=== PATIENT | male | born 1940 | race Caucasian/White ===

== ENCOUNTER 2018-02-03 06:19 | Day surgery (SDC) | payer MEDICARE ==
[2018-01-31 13:07] VITALS: BMI 31.8
[2018-02-03] MEDS ORDERED: SUCCINYLCHOLINE CHLORIDE 200 MG/10 ML VIAL ONE (07:18)
[2018-02-03] MEDS ORDERED: MIDAZOLAM HCL 2 MG/2 ML SINGLE DOSE VIAL ONE (07:19)
[2018-02-03] MEDS ORDERED: LACTATED RINGERS SOLUTION 1,000 ML IV SCH (11:15)
[2018-02-03] MEDS ORDERED: oxyCODONE HCL 5 MG TABLET PO PRN ×2 (11:15)
[2018-02-03] MEDS ORDERED: ONDANSETRON 4 MG/2 ML VIAL IVPUSH PRN (11:15)
--- NOTE | 2018-02-03 11:47 | OP ---
Operative Note - Note: Operative Date: 02/03/18 Pre-Operative Diagnosis: bph/urinary retention Operation: transurethral resection and vaporization of the prostate with bipolar system Findings: 3+ obstructive prostate with 2+ bladder trabeculation with cellules Post-Operative Diagnosis: Same as Pre-op Surgeon: Aleksander Restrepo Anesthesia: Spinal Specimens Removed: prostatic chips Estimated Blood Loss (mls): 30 Drains & Tubes with Location: [address] Operative Report Dictated: Yes
[2018-02-03 19:17] VITALS: BP 140/85; TEMP 98
[2018-02-03 19:31] VITALS: PULSE 76
--- NOTE | 2018-02-03 20:42 | OP ---
DATE OF OPERATION: 02/03/2018 PREOPERATIVE DIAGNOSIS: Benign prostatic hypertrophy and urinary retention. POSTOPERATIVE DIAGNOSIS: Benign prostatic hypertrophy and urinary retention. PROCEDURE: Transurethral resection and vaporization of the prostate with bipolar system. ATTENDING PHYSICIAN: Gissel Restrepo MD ANESTHESIA: Spinal. DESCRIPTION OF OPERATION: The patient was brought in the operating room, placed in supine position on the operating room table. Anesthesia and preoperative antibiotics were administered without complications. Patient was then placed in the dorsal lithotomy position and prepped and draped in the usual sterile manner. A resectoscope was placed under visualization into the bladder. The bladder was investigated and noted to have no evidence of stones or neoplasm. A 3+ obstructive prostate was noted. Resection of the prostate in order to debulk the prostate was performed initially. The margins of the resection were the bladder neck proximally and the verumontanum distally. The resection was performed in a 360-degree fashion. The resection was taken down to the level of the pseudocapsule of the prostate. Once this was performed, all prostatic chips were evacuated from the bladder utilizing the [employer] evacuator. At this point, the working element, which had been the loop, was changed to a button. Vaporization and cauterization was then ensured utilizing the button element of the bipolar system. Residual tissue was vaporized, and excellent hemostasis was attained within the prostatic fossa. The margins of the vaporization and cauterization were the bladder neck proximally and the verumontanum distally. This was done again in a 360-degree fashion. Excellent hemostasis was attained. The bladder was investigated and noted to have no evidence of residual prostatic tissue. There was no evidence of perforation of the bladder. The abdomen was soft on examination during the procedure. With excellent hemostasis, the resectoscope was removed, and a Mosquera catheter placed, 30 mL were inflated into the balloon of the catheter and placed on light traction. Excellent drainage was noted which was light pink in color. The disposition of the patient was to the recovery room. The catheter had been placed to straight drainage. The patient will be observed in the recovery room and the postop area. If the patient continues to do well, he will be discharged home. GISSEL SO M.D. [id number]
--- NOTE | 2018-02-04 18:54 | PATH ---
Surgical Pathology Report Patient Name: JUAQUIN SCHMITZ [facility]. Rec. #: [id number] /Age/Gender: 1940 (Age: 77) / M Account: [id number] Location: [facility] SURGICAL Taken: 02/03/2018 Received: 02/03/2018 Reported: 02/04/2018 Physicians: Aleksander Restrepo Specimen(s) Received PROSTATE CHIPS Clinical History BPH Final Diagnosis PROSTATE, TRANSURETHRAL RESECTION OF PROSTATE: BENIGN PROSTATIC TISSUE WITH ACINAR ATROPHY, CYSTIC CHANGES, GLANDULAR AND STROMAL HYPERPLASIA. UROTHELIAL MUCOSA WITH ACUTE AND CHRONIC INFLAMMATION AND CYSTITIS CYSTICA. Electronically Signed Sherley Davies M.D. Gross Description Received in formalin labeled "prostate chips," is a 10 g, 7.5 x 6.0 x 0.4 cm aggregate of multiple suazo, firm to rubbery portions of tissue, consistent with prostate chips. The specimen is entirely submitted in 10 cassettes. /02/03/2018 [place]udi02/03/2018
== END 2018-02-03 15:00 | disposition home or self-care (01) ==
LOC: JASU-SURG 06:19
PROVIDERS: ATTEND Urology
PROC: 0VT08ZZ Resection of Prostate, Via Natural or Artificial Opening Endoscopic (ICD-10-PCS; principal; 2018-02-03 08:00)
DX: N40.1 Benign prostatic hyperplasia with lower urinary tract symptoms (principal); R33.8 Other retention of urine; E11.9 Type 2 diabetes mellitus without complications; I10 Essential (primary) hypertension; J45.909 Unspecified asthma, uncomplicated
CPT/HCPCS: 82962; 88305-TC; 94760

== ENCOUNTER 2018-02-19 20:50 | Emergency (ER) | payer MEDICARE ==
--- NOTE | 2018-02-19 21:03 | PDOC ---
Rapid Medical Evaluation Chief Complaint: Shortness of Breath Time Seen by Provider: 02/19/18 21:02 Medical Evaluation: Allergies Allergy/AdvReac Type Severity Reaction Status Date / Time No Known Allergies Allergy Verified 02/03/18 07:04 02/19/18 21:02 I have performed a brief in-person evaluation of this patient. The patient presents with CC of: SOB PE: Skin: clear Heart: RRR Lungs: Clear Abd: non tender MS: Moves all extremities without difficulty Neuro: Alert Psych: Appropriate affect I have ordered the following: Cv Protocol The patient will proceed to main ED for further evaluation. Discharge Disposition - Diagnosis Dyspnea Qualifiers: Dyspnea type: shortness of breath Qualified Code(s): R06.02 - Shortness of breath; R06.00 - Dyspnea, unspecified; R06.01 - Orthopnea - Referrals Referrals: José Vo MD [Primary Care Provider] - - Patient Instructions - Post Discharge Activity
[2018-02-19 21:05] VITALS: BP 158/75; PULSE 64; TEMP 98.1; BMI 30.2
[2018-02-19 22:05] LABS: BASO % 1.4 % (0-2.0); EOS % 5.4 % (0-4.5); HEMATOCRIT 37.8 % (35.4-49); HEMOGLOBIN 13.2 GM/dL (11.7-16.9); LYMPH % 28.3 % (8-40); MCH 32.7 pg (25.7-33.7); MEAN CELL VOLUME 93.4 fl (80-96); MEAN PLT VOLUME 8.9 fl (7.5-11.1); MONO % 9.3 % (3.8-10.2); NEUT % 55.6 % (42.8-82.8); PLATELET COUNT 317 K/MM3 (134-434); RBC 4.05 M/mm3 (4.00-5.60); RDW 14.1 % (11.9-15.9); WHITE BLOOD COUNT 6.7 K/mm3 (4.0-10.0)
[2018-02-19 22:19] LABS: INR 1.02 (0.83-1.09)
[2018-02-19] MEDS ORDERED: ALBUTEROL SO4 2.5/IPRATROPIUM 0.5 INH SOL 3 ML VIAL.NEB. NEB ONE ×2 (22:20→22:33)
--- NOTE | 2018-02-19 22:32 | PDOC ---
History of Present Illness - General Chief Complaint: Shortness of Breath Stated Complaint: DIFF. BREATHING Time Seen by Provider: 02/19/18 21:02 History Source: Patient, Family Exam Limitations: No Limitations - History of Present Illness Initial Comments: 02/19/18 22:31 The patient is a 77M with a PMH of COPD and DM who presents to the ER with complaints of shortness of breath. The patient states that he developed shortness of breath earlier today around 1400. He denies any CP, nausea, vomiting, fever, chills, or cough with this shortness of breath. He denies any leg swelling, hx of DVT/PE, recent travel, but admits to having a TURP procedure 2 weeks ago. Past History - Past Medical History Allergies/Adverse Reactions: Allergies Allergy/AdvReac Type Severity Reaction Status Date / Time No Known Allergies Allergy Verified 02/19/18 21:05 Home Medications: Ambulatory Orders Budesonide/Formeterol Fumarate [SYMBICORT 160/4.5mcg -] 1 inh PO PRN 01/31/18 Glimepiride [Amaryl -] 2 mg PO DAILY 01/31/18 Lisinopril [Zestril] 2.5 mg PO DAILY 01/31/18 Metoprolol Succinate [Toprol Xl] 50 mg PO DAILY 01/31/18 Oxybutynin Chloride [Ditropan Xl] 10 mg PO DAILY 01/31/18 Tamsulosin HCl [Flomax] 0.4 mg PO DAILY 01/31/18 Bicalutamide [Casodex -] 50 mg PO DAILY 02/19/18 Albuterol Sulfate Inhaler - [Ventolin HFA Inhaler -] 1 - 2 inh PO Q4H PRN #1 inhaler 02/20/18 Azithromycin 250 mg PO ONCE #5 tablet 02/20/18 Anemia: No Asthma: No Cancer: Yes (PROSTATE) Cardiac Disorders: No CVA: No COPD: Yes CHF: No Dementia: No Diabetes: Yes GI Disorders: No Disorders: No HTN: Yes Hypercholesterolemia: No Liver Disease: No Seizures: No Thyroid Disease: No - Surgical History Abdominal Surgery: Yes (HERNIA) Appendectomy: No Cardiac Surgery: No Cholecystectomy: No Lung Surgery: No Neurologic Surgery: No Orthopedic Surgery: No - Suicide/Smoking/Psychosocial Hx Smoking Status: No Smoking History: Never smoked Have you smoked in the past 12 months: No Number of Cigarettes Smoked Daily: 0 If you are a former smoker, when did you quit?: 36 YEARS AGO Information on smoking cessation initiated: No Hx Alcohol Use: No Drug/Substance Use Hx: No Substance Use Type: None Hx Substance Use Treatment: No Review of Systems - Review of Systems Able to Perform ROS?: Yes Comments:: 02/20/18 01:29 GENERAL/CONSTITUTIONAL: No fever or chills. No weakness. HEAD, EYES, EARS, NOSE AND THROAT: No change in vision. No ear pain or discharge. No sore throat. CARDIOVASCULAR: No chest pain, palpitations, or lightheadedness. RESPIRATORY: Positive for shortness of breath. No cough, wheezing, or hemoptysis. GASTROINTESTINAL: No nausea, vomiting, diarrhea, constipation, or abdominal pain. GENITOURINARY: No dysuria, frequency, hematuria, or change in urination. MUSCULOSKELETAL: No joint or muscle swelling or pain. No neck or back pain. SKIN: No rash or lesions. NEUROLOGIC: No headache, numbness, tingling, focal weakness, loss of consciousness, or change in strength/sensation. ENDOCRINE: No increased thirst. No abnormal weight change. HEMATOLOGIC/LYMPHATIC: No anemia, easy bleeding, or history of blood clots. ALLERGIC/IMMUNOLOGIC: No hives or skin allergy. Is the patient limited Persian proficient: No *Physical Exam - Vital Signs Last Vital Signs Temp Pulse Resp BP Pulse Ox 98.1 F 64 16 158/75 96 02/19/18 21:02 02/19/18 21:02 02/19/18 21:02 02/19/18 21:02 02/19/18 21:54 - Physical Exam Comments: 02/20/18 01:29 GENERAL: Well developed, well nourished. Awake and alert. No acute distress. HEENT: Normocephalic, atraumatic. Hearing grossly normal. Moist mucous membranes. PERRLA, EOMI. No conjunctival pallor. Sclera are non-icteric. NECK: Supple. Full ROM. No JVD. CARDIOVASCULAR: Regular rate and rhythm. No murmurs, rubs, or gallops. PULMONARY: No evidence of respiratory distress. Lungs show diffuse rhonchi. ABDOMINAL: Soft. Non-tender. Non-distended. No rebound or guarding. GENITOURINARY: No CVA tenderness bilaterally. MUSCULOSKELETAL: Normal range of motion at all joints. No bony deformities or tenderness. EXTREMITIES: No cyanosis. No clubbing. No edema. No calf tenderness or swelling. SKIN: Warm and dry. Normal capillary refill. No rashes. No jaundice. NEUROLOGICAL: Alert, awake, appropriate. Cranial nerves 2-12 grossly intact. Normal speech. Gait is normal without ataxia. PSYCHIATRIC: Cooperative. Good eye contact. Appropriate mood and affect. Moderate Sedation - Procedure Monitoring Vital Signs: Procedure Monitoring Vital Signs Temperature 98.1 F 02/19/18 21:02 Pulse Rate 64 02/19/18 21:02 Respiratory Rate 16 02/19/18 21:02 Blood Pressure 158/75 02/19/18 21:02 O2 Sat by Pulse Oximetry (%) 96 02/19/18 21:54 Heart Score/ECG Review - History History: Slightly suspicious - Electrocardiogram EKG: Normal - Age Age: >/= 65 - Risk Factors Risk Factors Heart Score: Yes Hx Diabetes Based on the list above the patient has:: 1-2 risk factors - Troponin Troponin: </= normal limit - Score Heart Score - Total: 3 #1 ECG reviewed & interpreted by me at: 21:45 General ECG Interpretation: Sinus Rhythm, Normal Rate, Normal Intervals, No acute ischemic changes Compared to previous ECG there are: No significant change 02/20/18 01:39 NSR vent rate 60 AK 138 QRS 72 QTc 439 No STD or SEAN No signs of acute ischemia ED Treatment Course - LABORATORY CBC & Chemistry Diagram: 02/19/18 21:20 02/19/18 22:10 - ADDITIONAL ORDERS Additional order review: Laboratory Results 02/19/18 02/19/18 21:20 21:19 PT with INR 12.00 INR 1.02 Sodium Cancelled Potassium Cancelled Chloride Cancelled Carbon Dioxide Cancelled Anion Gap Cancelled BUN Cancelled Creatinine Cancelled Creat Clearance w eGFR Cancelled Random Glucose Cancelled Calcium Cancelled Magnesium Cancelled Total Bilirubin Cancelled AST Cancelled ALT Cancelled Alkaline Phosphatase Cancelled Creatine Kinase Cancelled Troponin I Cancelled Total Protein Cancelled Albumin Cancelled 02/19/18 21:20 RBC 4.05 MCV 93.4 MCHC 35.0 RDW 14.1 MPV 8.9 Neutrophils % 55.6 D Lymphocytes % 28.3 D Monocytes % 9.3 D Eosinophils % 5.4 H D Basophils % 1.4 D - RADIOLOGY Radiology Studies Ordered: Category Date Time Status CHEST X-RAY PORTABLE* [RAD] Stat Radiology 02/19/18 22:28 Ordered Medical Decision Making - Medical Decision Making 02/20/18 01:04 The patient is a 77M with a PMH of COPD and DM who presents to the ER with complaints of SOB. Exam shows diffuse rhonchi. Will treat for COPD exacerbation. CXR shows possible R lower lobe infiltrate. Giving first dose of abx in ER. DDx includes CHF and atypical ACS. Trop and BNP negative. 2 nebs given with improvement in aeration. Will d/c with PCP f/u and abx and inhaler. *DC/Admit/Observation/Transfer Diagnosis at time of Disposition: Dyspnea Qualifiers: Dyspnea type: shortness of breath Qualified Code(s): R06.02 - Shortness of breath - Discharge Dispostion Disposition: HOME Condition at time of disposition: Stable Decision to Admit order: No - Prescriptions Prescriptions: Albuterol Sulfate Inhaler - [Ventolin HFA Inhaler -] 1 - 2 inh PO Q4H PRN #1 inhaler PRN Reason: Short Of Breath/Wheezing Azithromycin 250 mg PO ONCE #5 tablet - Referrals Referrals: José Vo MD [Primary Care Provider] - - Patient Instructions Printed Discharge Instructions: DI for Chronic Obstructive Pulmonary Disease Additional Instructions: Please follow up with your primary care physician in 1-2 days. Please return to the ER if you have any signs or symptoms of chest pain, shortness of breath, uncontrollable fever, chills, nausea, vomiting, numbness, tingling, or weakness in any part of your body, changes in vision, or slurred speech. Please take your medications as prescribed. Please return to the ER if symptoms persist, worsen, or new symptoms arise. - Post Discharge Activity
--- NOTE | 2018-02-19 22:32 | PDOC ---
Attending Attestation - Resident Resident Name: Everette Mcginnis - ED Attending Attestation I have performed the following: I have examined & evaluated the patient, The case was reviewed & discussed with the resident, I agree w/resident's findings & plan, Exceptions are as noted - HPI HPI: 02/19/18 23:04 77M pmh of COPD, DM here with acute worsening of chronic SOB. Pt has had a worsening of his baseline SOB over the past several months. Over the last several days it has gotten progressively worse. Aggravated by lying flat. No n/ v, f/c, denies increase in or purulence of sputum - Physicial Exam PE: 02/19/18 23:06 Pt was being treated with nebs on my initial exam. Pt reports subjective improvement in symptoms. NAD, AOx3, normal WOB Diffuse rhonchi - Medical Decision Making 02/19/18 23:07 Likely COPD exacerbation, exam/hx inconsistent with viral syndrome, failure, acs , pe, consider pna Symptomatic tx, nebs, steroids f/u cxr dispo per clinical course 02/20/18 01:44 Symptomatic improvement Stable for dc home with trial out pt tx
[2018-02-19] MEDS ORDERED: methylPREDNISolone NA SUCC 125 MG/2 ML VIAL IVPUSH ONE (22:46)
[2018-02-19] MEDS ORDERED: AZITHROMYCIN IVPB 500 MG in DEXTROSE 5%-WATER - 250 ML IVPB ONE (22:46)
[2018-02-19] MEDS ORDERED: methylPREDNISolone NA SUCC 125 MG/2 ML VIAL ONE (22:53)
[2018-02-19] MEDS ORDERED: AZITHROMYCIN IVPB 500 MG/250 ML BAG IVPB ONE (22:53)
[2018-02-19 22:55] LABS: ALBUMIN 3.3 g/dl (3.4-5.0); ALK PHOS 110 U/L (45-117); ANION GAP 8 MMOL/L (8-16); BILIRUBIN,TOTAL 0.4 mg/dL (0.2-1); BLOOD UREA NITROGEN 24 mg/dL (7-18); CALCIUM 7.9 mg/dL (8.5-10.1); CHLORIDE 106 mmol/L (98-107); CO2 27 mmol/L (21-32); CREATININE 1.6 mg/dL (0.55-1.3); GLUCOSE,RANDOM 109 mg/dL (74-106); N-TERMINAL BNP 85.5 pg/ml (5-450); POTASSIUM 4.1 mmol/L (3.5-5.1); SGOT/AST 21 U/L (15-37); SGPT/ALT 23 U/L (13-61); SODIUM 140 mmol/L (136-145); TOT PROT 7.4 g/dl (6.4-8.2)
--- NOTE | 2018-02-20 10:28 | EKG ---
Test Reason : Blood Pressure : / mmHG Vent. Rate : 058 BPM Atrial Rate : 058 BPM P-R Int : 138 ms QRS Dur : 072 ms QT Int : 448 ms P-R-T Axes : 046 010 036 degrees QTc Int : 439 ms POOR DATA QUALITY, INTERPRETATION MAY BE ADVERSELY AFFECTED SINUS BRADYCARDIA LOW VOLTAGE QRS CANNOT RULE OUT ANTERIOR INFARCT , AGE UNDETERMINED ABNORMAL ECG NO PREVIOUS ECGS AVAILABLE Confirmed by ARANZA KHOURY, JAKE ([id number]) on 02/20/2018 10:28:29 AM Referred By: Confirmed By:JAKE COBIAN MD
== END 2018-02-20 01:18 | disposition home or self-care (01) ==
LOC: JER 20:50
PROC: 3E0F7GC Introduction of Other Therapeutic Substance into Respiratory Tract, Via Natural or Artificial Opening (ICD-10-PCS; principal; 2018-02-19)
PROC: 3E03329 Introduction of Other Anti-infective into Peripheral Vein, Percutaneous Approach (ICD-10-PCS; 2018-02-19)
PROC: 3E033GC Introduction of Other Therapeutic Substance into Peripheral Vein, Percutaneous Approach (ICD-10-PCS; 2018-02-19)
DX: R06.02 Shortness of breath (principal); J44.9 Chronic obstructive pulmonary disease, unspecified; Z85.46 Personal history of malignant neoplasm of prostate; E11.9 Type 2 diabetes mellitus without complications; I10 Essential (primary) hypertension
CPT/HCPCS: 36415; 71046-TC-FY; 80053; 82550; 83735; 83880; 84484; 85025; 85610; 93005; 93010; 99285-25

== ENCOUNTER 2018-02-25 02:31 | Emergency (ER) | payer MEDICARE ==
[2018-02-25 03:06] VITALS: BP 159/77; PULSE 74; TEMP 97.7; BMI 27.6
--- NOTE | 2018-02-25 03:07 | PDOC ---
History of Present Illness - General Stated Complaint: DIFFICULTY BREATHING Time Seen by Provider: 02/25/18 02:39 History Source: Patient Exam Limitations: No Limitations - History of Present Illness Initial Comments: 02/25/18 03:04 CC: "I am short of breath" 77 year old male with PMH HTN, COPD, DM presented to ED for SOB x2 weeks, worsening over 2-3 days. Pt admitted to increased cough and white sputum. Pt reported SOB occurs at rest, worsened with lying flat and exertion. Pt denied fever, vomiting, chest pain, hemoptysis, abdominal pain, diarrhea, lower extremity swelling. Pt had TURP procedure x2 weeks ago, c/o dysuria x2 weeks. Pt was seen in [facility] ED for similar complaints 02/19/18, labs normal, CXR nonfocal , pt discharged with ventolin and azithromycin. Pt was not given steroid. PCP: Dr. José Madrigal Past surgical history: TURP x2 weeks ago Past History - Past Medical History Allergies/Adverse Reactions: Allergies Allergy/AdvReac Type Severity Reaction Status Date / Time No Known Allergies Allergy Verified 02/25/18 03:04 Home Medications: Ambulatory Orders Budesonide/Formeterol Fumarate [SYMBICORT 160/4.5mcg -] 1 inh PO PRN 01/31/18 Glimepiride [Amaryl -] 2 mg PO DAILY 01/31/18 Lisinopril [Zestril] 2.5 mg PO DAILY 01/31/18 Metoprolol Succinate [Toprol Xl] 50 mg PO DAILY 01/31/18 Oxybutynin Chloride [Ditropan Xl] 10 mg PO DAILY 01/31/18 Tamsulosin HCl [Flomax] 0.4 mg PO DAILY 01/31/18 Bicalutamide [Casodex -] 50 mg PO DAILY 02/19/18 Albuterol Sulfate Inhaler - [Ventolin HFA Inhaler -] 1 - 2 inh PO Q4H PRN #1 inhaler 02/20/18 Azithromycin 250 mg PO ONCE #5 tablet 02/20/18 Albuterol 0.083% Nebulizer Kat [Ventolin 0.083% Nebulizer Soln -] 1 amp NEB QID PRN #20 amp 02/25/18 Cephalexin [Keflex] 500 mg PO BID #14 capsule 02/25/18 Anemia: No Asthma: No Cancer: Yes (PROSTATE) Cardiac Disorders: No CVA: No COPD: Yes CHF: No Dementia: No Diabetes: Yes GI Disorders: No Disorders: No HTN: Yes Hypercholesterolemia: No Liver Disease: No Seizures: No Thyroid Disease: No - Surgical History Abdominal Surgery: Yes (HERNIA) Appendectomy: No Cardiac Surgery: No Cholecystectomy: No Lung Surgery: No Neurologic Surgery: No Orthopedic Surgery: No - Suicide/Smoking/Psychosocial Hx Smoking Status: No Smoking History: Never smoked Have you smoked in the past 12 months: No Number of Cigarettes Smoked Daily: 0 If you are a former smoker, when did you quit?: 36 YEARS AGO Hx Alcohol Use: No Drug/Substance Use Hx: No Substance Use Type: None Hx Substance Use Treatment: No Review of Systems - Review of Systems Able to Perform ROS?: Yes Comments:: 02/25/18 03:16 General: denied fever, chills, night sweats, generalized weakness. HEENT: denied sore throat, rhinorrhea, ear pain. Heart: denied chest pain, palpitations, syncope, lower extremity swelling, diaphoresis. Respiratory: admitted to shortness of breath, cough, sputum production. denied hemoptysis. Abdomen: denied abdominal pain, nausea, vomiting, diarrhea, constipation, blood in stool. : admitted to dysuria. denied hematuria, urinary incontinence, flank pain. Back: denied back pain. Musculoskeletal: denied joint pain, muscle pain, joint swelling. Neurological: denied headache, dizziness, numbness, tingling, weakness. Skin: denied rash, laceration, abrasion. *Physical Exam - Physical Exam Comments: 02/25/18 03:17 Constitutional: Well-nourished, Well-developed, appearing stated age. HEENT: head is normocephalic, atraumatic. EOMI. PERRLA. Neck: supple. Full ROM. Heart: regular rhythm. no murmurs, rubs or gallops. Lungs: decreased air movement bilaterally. clear to auscultation bilaterally. no crackles, rhonchi or wheezing. no stridor. Abdomen: soft, nontender. normal bowel sounds. no rebound, guarding, masses. Extremities: Peripheral pulses intact. No lower extremity edema. Neurological: CN 2-12 grossly intact. Moves all four extremities. Psych: awake, alert, oriented x3. Follows commands. Answers questions appropriately ED Treatment Course - LABORATORY CBC & Chemistry Diagram: 02/25/18 03:31 02/25/18 03:31 Medical Decision Making - Medical Decision Making 02/25/18 03:17 77 year old male with above PMH presented to ED increasing SOB over 2 weeks. Pt had ECHO for TURP that was normal per family. Initial Vital Signs Temp Pulse Resp BP Pulse Ox 97.7 F 74 20 159/77 97 02/25/18 02:35 02/25/18 02:35 02/25/18 02:35 02/25/18 02:35 02/25/18 02:35 Afebrile. No tachycardia. No tachypnea. Mild hypertension. No hypoxia on room air. Labs ordered: CBC, BMP, VBG, troponin Medication ordered: duoneb, solumedrol EKG performed at 0257: rate 74, regular rhythm, left axis, normal intervals, flat T in V1, aVL. Similar to prior 02/19/18. Imaging ordered: CXR Pt had normal BNP 02/19/18, no lower extremity swelling, no JVD, no crackles on lung examination. CHF unlikely. No indication to repeat at this time. 02/25/18 03:42 CBC WBC 7.0 K/mm3 (4.0-10.0) 02/25/18 03:31 RBC 4.45 M/mm3 (4.00-5.60) 02/25/18 03:31 Hgb 14.4 GM/dL (11.7-16.9) 02/25/18 03:31 Hct 41.3 % (35.4-49) 02/25/18 03:31 MCV 92.9 fl (80-96) 02/25/18 03:31 MCH 32.3 pg (25.7-33.7) 02/25/18 03:31 MCHC 34.7 g/dl (32.0-35.9) 02/25/18 03:31 RDW 13.8 % (11.9-15.9) 02/25/18 03:31 Plt Count 296 K/MM3 (134-434) 02/25/18 03:31 MPV 8.2 fl (7.5-11.1) 02/25/18 03:31 Absolute Neuts (auto) 4.3 K/mm3 (1.5-8.0) 02/25/18 03:31 Neutrophils % 61.8 % (42.8-82.8) 02/25/18 03:31 Lymphocytes % 23.7 % (8-40) 02/25/18 03:31 Monocytes % 7.8 % (3.8-10.2) 02/25/18 03:31 Eosinophils % 5.6 % (0-4.5) H 02/25/18 03:31 Basophils % 1.1 % (0-2.0) 02/25/18 03:31 Nucleated RBC % 0 % (0-0) 02/25/18 03:31 No leukocytosis. No anemia. No thrombocytopenia. VBG normal. No CO2 retention. No acidosis. Pt ambulated without assistance to the bathroom, returned with pink urine. Stated he has had discolored urine x3 days. 02/25/18 04:12 CMP Sodium 138 mmol/L (136-145) 02/25/18 03:31 Potassium 4.5 mmol/L (3.5-5.1) 02/25/18 03:31 Chloride 106 mmol/L (98-107) 02/25/18 03:31 Carbon Dioxide 26 mmol/L (21-32) 02/25/18 03:31 Anion Gap 6 MMOL/L (8-16) L 02/25/18 03:31 BUN 23 mg/dL (7-18) H 02/25/18 03:31 Creatinine 1.5 mg/dL (0.55-1.3) H 02/25/18 03:31 Creat Clearance w eGFR 45.38 (>60) 02/25/18 03:31 Random Glucose 123 mg/dL (74-106) H 02/25/18 03:31 Calcium 8.2 mg/dL (8.5-10.1) L 02/25/18 03:31 Troponin I < 0.02 ng/ml (0.00-0.05) 02/25/18 03:31 No electrolye abnormalities. Cr at baseline. Mild hyperglycemia - Pt nonfasting Mild hypocalcemia, not clinically concerning. Troponin normal. CXR: no infiltrate. no pneumothorax. unchanged from prior 02/19/18. 02/25/18 05:13 Urine Test Results Urine Color Red 02/25/18 03:30 Urine Appearance Clear 02/25/18 03:30 Urine pH 6.0 (5.0-8.0) 02/25/18 03:30 Ur Specific [place] 1.005 (1.010-1.035) L 02/25/18 03:30 Urine Protein 1+ (NEGATIVE) H 02/25/18 03:30 Urine Glucose (UA) Negative (NEGATIVE) 02/25/18 03:30 Urine Ketones Negative (NEGATIVE) 02/25/18 03:30 Urine Blood 3+ (NEGATIVE) H 02/25/18 03:30 Urine Nitrite Negative (NEGATIVE) 02/25/18 03:30 Urine Bilirubin Negative (<2.0 mg/dL) 02/25/18 03:30 Ur Leukocyte Esterase 2+ (NEGATIVE) H 02/25/18 03:30 Urine Bacteria Few /hpf (NONE SEEN) 02/25/18 03:30 WBC 21. Pt has UTI. Pt reassessed, reported improved shortness of breath. Pt to be discharged with keflex, nebulizer/albuterol solution and instructions for PCP and urology follow up. *DC/Admit/Observation/Transfer Diagnosis at time of Disposition: COPD (chronic obstructive pulmonary disease), Dyspnea - Discharge Dispostion Disposition: HOME Condition at time of disposition: Improved Decision to Admit order: No - Prescriptions Prescriptions: Albuterol 0.083% Nebulizer Kat [Ventolin 0.083% Nebulizer Soln -] 1 amp NEB QID PRN #20 amp PRN Reason: Short Of Breath/Wheezing Cephalexin [Keflex] 500 mg PO BID #14 capsule - Referrals Referrals: José Vo MD [Primary Care Provider] - - Patient Instructions Printed Discharge Instructions: DI for Urinary Tract Infection (UTI), DI for Chronic Obstructive Pulmonary Disease Additional Instructions: You were seen today for shortness of breath. Your lab work was unchanged from prior. Your EKG was unchanged from prior. Your chest X-ray showed no pneumonia. Your urine analysis showed you have a urinary tract infection, I have sent a prescription for an antibiotic to your pharmacy. Take as advised on label. You received the first dose in the Emergency Department, the next dose is 12 hours from then. Follow up with your primary care doctor for in 1-2 days. Follow up with your urologist for your urinary tract infection and blood in urine in 1-2 days. Return to the Emergency Department for increasing shortness of breath, chest pain, palpitations, weakness, coughing up blood, or any other new, worsening or concerning symptoms. - Post Discharge Activity
[2018-02-25] MEDS ORDERED: ALBUTEROL SO4 2.5/IPRATROPIUM 0.5 INH SOL 3 ML VIAL.NEB. NEB ONE ×2 (03:20→03:59)
[2018-02-25] MEDS ORDERED: methylPREDNISolone NA SUCC 125 MG/2 ML VIAL IVPUSH ONE (03:21)
[2018-02-25 03:36] LABS: BASO % 1.1 % (0-2.0); EOS % 5.6 % (0-4.5); HEMATOCRIT 41.3 % (35.4-49); HEMOGLOBIN 14.4 GM/dL (11.7-16.9); LYMPH % 23.7 % (8-40); MCH 32.3 pg (25.7-33.7); MCHC 34.7 g/dl (32.0-35.9); MEAN CELL VOLUME 92.9 fl (80-96); MEAN PLT VOLUME 8.2 fl (7.5-11.1); MONO % 7.8 % (3.8-10.2); NEUT % 61.8 % (42.8-82.8); PLATELET COUNT 296 K/MM3 (134-434); RBC 4.45 M/mm3 (4.00-5.60); RDW 13.8 % (11.9-15.9)
[2018-02-25 03:37] LABS: VENOUS PC02 43.7 mmHg (38-52); VENOUS PH 7.38 (7.32-7.42); VENOUS PO2 34.5 mmHg (28-48)
[2018-02-25 03:49] LABS: INR 1.01 (0.83-1.09); PROTHROMBIN TIME (PATIENT) 11.9 SEC (9.7-13.0)
[2018-02-25 03:51] LABS: ACTIVATED PTT 30.5 SECONDS (25.2-36.5)
[2018-02-25] MEDS ORDERED: methylPREDNISolone NA SUCC 125 MG/2 ML VIAL ONE (04:00)
[2018-02-25 04:03] LABS: ANION GAP 6 MMOL/L (8-16); BLOOD UREA NITROGEN 23 mg/dL (7-18); CALCIUM 8.2 mg/dL (8.5-10.1); CHLORIDE 106 mmol/L (98-107); CO2 26 mmol/L (21-32); CREATININE 1.5 mg/dL (0.55-1.3); GLUCOSE,RANDOM 123 mg/dL (74-106); POTASSIUM 4.5 mmol/L (3.5-5.1); SODIUM 138 mmol/L (136-145)
--- NOTE | 2018-02-25 04:15 | PDOC ---
Attending Attestation - Resident Resident Name: BrigitteDanielle umaña - ED Attending Attestation I have performed the following: I have examined & evaluated the patient, The case was reviewed & discussed with the resident, I agree w/resident's findings & plan - [facility] HPI: 02/25/18 05:21 77 year old male with PMH HTN, COPD, DM, BPH s/p TURP presented to ED for SOB x2 weeks, worsening over 2-3 days. a/w productive clear cough and congestion. no sick contacts was seen last week in the ED for similar sx, rx'd albuterol. neg cxr and neg cardiac workup - Physicial Exam PE: 02/25/18 05:22 NAD, well appearing, PERRL, EOMI, MMM, nl conjunctiva, anicteric; neck supple. lungs clear, RRR, abdomen soft nontender. HUMPHREYS x4, no focal neuro deficits. No peripheral edema. normal color for ethnicity, WWP. - Medical Decision Making 02/25/18 05:22 See HPI for details Vital signs reviewed, wnl. Prior notes reviewed, including admissions, discharges and consultations. laboratory results and imaging reviewed, basic labs and lytes wnl, VBG normal. Cr at baseline unchanged. UA_positive with some urinary sx/irritation when he urinates, since his surgery CXR_clear, no pulmonary edema, normal cardiac silhouette Cardiac panel_neg trop; prior bnp normal ED course: given duonebs, with relief no prolonged steroid use with risk of hyperglycemia /dm history. feels improved, no hypoxia or respiratory distress. keflex x 1 week for UTI, f/u urine cx. Dispo: I discussed the physical exam findings, ancillary test results and final diagnoses with the patient. I answered all of the patient's questions. The patient was satisfied with the care received and felt comfortable with the discharge plan and treatment plan. The patient will return to the Emergency Department with any new, persistent or worsening symptoms. Dr. Tom followup as outpatient 02/25/18 05:23 02/25/18 05:24
[2018-02-25 04:46] LABS: URINE APPEARANCE CLEAR; URINE BILIRUBIN NEGATIVE (<2.0 mg/dL); URINE COLOR RED; URINE GLUCOSE (UA) NEGATIVE (NEGATIVE); URINE KETONE NEGATIVE (NEGATIVE); URINE LEUK ESTERASE 2+ (NEGATIVE); URINE NITRITE NEGATIVE (NEGATIVE); URINE PROTEIN 1+ (NEGATIVE); URINE UROBILINOGEN NEGATIVE mg/dL (0.2-1.0)
[2018-02-25 05:06] LABS: URINE BACTERIA FEW /hpf (NONE SEEN)
[2018-02-25] MEDS ORDERED: CEPHALEXIN MONOHYDRATE 500 MG CAPSULE (UD) PO ONE (05:15)
[2018-02-25] MEDS ORDERED: CEPHALEXIN MONOHYDRATE 500 MG CAPSULE (UD) ONE (05:22)
--- NOTE | 2018-03-02 12:34 | EKG ---
Test Reason : Blood Pressure : / mmHG Vent. Rate : 074 BPM Atrial Rate : 074 BPM P-R Int : 128 ms QRS Dur : 070 ms QT Int : 404 ms P-R-T Axes : 049 002 018 degrees QTc Int : 448 ms POOR DATA QUALITY, INTERPRETATION MAY BE ADVERSELY AFFECTED NORMAL SINUS RHYTHM NONSPECIFIC ST ABNORMALITY ABNORMAL ECG WHEN COMPARED WITH ECG OF 19-FEB-2018 21:32, NO SIGNIFICANT CHANGE WAS FOUND Confirmed by NAVJOT MARIEE MD ([id number]) on 03/02/2018 12:33:56 PM Referred By: Confirmed By:NAVJOT MARIEE MD
== END 2018-02-25 05:45 | disposition home or self-care (01) ==
LOC: JER 02:31
PROC: 3E0F7GC Introduction of Other Therapeutic Substance into Respiratory Tract, Via Natural or Artificial Opening (ICD-10-PCS; principal; 2018-02-25)
PROC: 3E033GC Introduction of Other Therapeutic Substance into Peripheral Vein, Percutaneous Approach (ICD-10-PCS; 2018-02-25)
DX: J44.9 Chronic obstructive pulmonary disease, unspecified (principal); R06.00 Dyspnea, unspecified; I10 Essential (primary) hypertension; E11.9 Type 2 diabetes mellitus without complications
CPT/HCPCS: 36415; 71046-TC-FY; 80048; 81003; 81015; 82803; 84484; 85025; 85610; 85730; 86850; 86900; 86901; 87086; 93005; 93010; 94640; 96374; 99282-25

== ENCOUNTER 2018-05-21 09:40 | Day surgery (SDC) | payer OTHER ==
[2018-05-20 17:02] VITALS: BMI 31.8
[~2018-05-21 09:40] MED LIST: ACETAMINOPHEN 325 MG TABLET (FP) PO PRN; PHENYLEPHRINE/KETOROLAC 4 ML VIAL IO ONE
[2018-05-21] MEDS ORDERED: KETOROLAC TROMETHAMINE 0.5% EYE DROP 1 DROP DROPS ONE (09:54)
[2018-05-21] MEDS ORDERED: CYCLOPENTOLATE HCL 1% OPHTH SOLN 2 ML BOTTLE ONE (09:54)
[2018-05-21] MEDS ORDERED: OFLOXACIN 0.3% OPHTHALMIC SOLUTION 5 ML BOTTLE ONE (09:54)
[2018-05-21] MEDS ORDERED: TROPICAMIDE 1% OPHTH SOLN 15 ML BOTTLE ONE (09:54)
[2018-05-21] MEDS: CYCLOPENTOLATE HCL 1% OPHTH SOLN 2 ML BOTTLE OP SCH ×3 (10:00→10:10)
[2018-05-21] MEDS: PHENYLEPHRINE 2.5% OPHTH SOLN 15 ML BOTTLE OP SCH ×3 (10:00→10:10)
[2018-05-21] MEDS: TROPICAMIDE 1% OPHTH SOLN 15 ML BOTTLE OP SCH ×3 (10:00→10:10)
[2018-05-21] MEDS: KETOROLAC TROMETHAMINE 0.5% EYE DROP 1 DROP DROPS OP SCH ×3 (10:00→10:10)
[2018-05-21] MEDS: OFLOXACIN 0.3% OPHTHALMIC SOLUTION 5 ML BOTTLE OP SCH ×3 (10:00→10:10)
[2018-05-21] MEDS ORDERED: MIDAZOLAM HCL 2 MG/2 ML SINGLE DOSE VIAL ONE (10:47)
[2018-05-21] MEDS ORDERED: TETRACAINE 0.5% OPHTH SOLN 2 ML BOTTLE OS ONE (11:10)
[2018-05-21] MEDS ORDERED: POVIDONE-IODINE 5% OPHTHALMIC PREP 30 ML SOLUTION OS ONE (11:11)
[2018-05-21] MEDS ORDERED: BSS (NA/CA/MG/K) BALANCED SALT SOLUTION OPHTH SOLN 15 ML BOTTLE OS ONE (11:20)
[2018-05-21] MEDS ORDERED: LIDOCAINE HCL 1% PRESERVATIVE FREE - 30ML VIAL IO ONE (11:20)
[2018-05-21] MEDS ORDERED: CHONDROITIN SU A/HYALUR SOD 1 KIT IO ONE (11:20)
[2018-05-21] MEDS ORDERED: PHENYLEPHRINE/KETOROLAC 4 ML VIAL IO ONE (11:27)
[2018-05-21 12:50] VITALS: BP 129/76; PULSE 77; TEMP 98.1
--- NOTE | 2018-05-22 15:22 | SPEC ---
DATE OF OPERATION: 05/21/2018 SURGEON: Ashley Villanueva M.D. PREOPERATIVE DIAGNOSIS: Cataract, left eye. POSTOPERATIVE DIAGNOSIS: Cataract, left eye. PROCEDURE: Phacoemulsification of left cataract with posterior chamber intraocular lens implantation. Lens used [id number] 24.0 diopter power, serial No. [id number]. ANESTHESIA: Topical MAC. COMPLICATIONS: None. DESCRIPTION OF PROCEDURE: The patient was brought to the operating room and correctly identified along with the operative site and the correct intraocular lens trujillo. The patient was then prepped and draped in the usual sterile fashion including 5% Betadine solution in the conjunctival sac and an eyelid drape. An eyelid speculum was then placed in the eye. A paracentesis port was created and approximately 0.5 mL of preservative free Lidocaine was then injected into the eye. Viscoelastic was then injected to inflate the anterior chamber. A temporal clear corneal wound was created. A continuous circular capsulorrhexis was performed. The nucleus was then hydrodissected with BSS and removed with phacoemulsification. The remaining cortical material was irrigated and aspirated. Viscoelastic was injected to inflate the capsular bag and the intraocular lens was then implanted into the capsular bag. The remaining Viscoelastic was irrigated and aspirated from the eye. The IOL was noted to be well centered and completely covered by the anterior capsulorrhexis. Topical vancomycin was placed and the eye patched and shielded. All wounds were tested and found to be watertight. No suture was placed. The eye was then shielded. The patient was then discharged from the operating room in stable condition. ASHLEY VILLANUEVA M.D. [id number]
== END 2018-05-21 12:50 | disposition home or self-care (01) ==
LOC: JASU-SURG 09:40
PROVIDERS: ATTEND Ophthalmology
PROC: 08RK3JZ Replacement of Left Lens with Synthetic Substitute, Percutaneous Approach (ICD-10-PCS; principal; 2018-05-21 11:00)
DX: H26.9 Unspecified cataract (principal)
CPT/HCPCS: C9447